=== PATIENT | male | born 1980 | race Caucasian/White ===

== ENCOUNTER 2022-03-08 08:18 | Outpatient (CLI) | payer BC, SELFPAY ==
[2022-03-08 20:55] LABS: Basophils Absolute Auto 0.1 K/mm3 (0.0-0.1); Basophils Percent Auto 0.8 % (0.2-1.2); Eosinophils Absolute Auto 0.4 K/mm3 (0-0.3); Eosinophils Percent Auto 7.1 % (0-4.4); Hematocrit 46.4 % (42.0-52.0); Hemoglobin 15.6 g/dL (14.0-18.0); Immature Granulocyte Absolute 0.01 K/mm3 (0.00-0.031); Immature Granulocyte Percent A 0.2 % (0-0.5); Lymphocytes Absolute Auto 1.23 K/mm3 (0.9-3.2); Lymphocytes Percent Auto 20.9 % (18.3-44.2); Mean Corpuscular HGB Conc 33.6 g/dl (32-36); Mean Corpuscular Hemoglobin 30.4 pg (26-34); Mean Corpuscular Volume 90.4 fl (80-100); Mean Platelet Volume 10.3 fl (7.4-10.4); Monocytes Absolute Auto 0.6 K/mm3 (0.1-0.6); Neutrophils Absolute Auto 3.6 K/mm3 (1.3-6.7); Platelet Count Result 211 k/mm3 (150-375); Red Blood Count 5.13 M/mm3 (4.6-6.20); Red Cell Distribution Width 12.5 % (11.5-14.5); White Blood Count 5.9 K/mm3 (4.5-10.0)
[2022-03-08 20:57] LABS: Alanine Aminotransferase 15 U/L (6-50); Albumin Level 4.3 g/dL (3.5-5.1); Alkaline Phosphatase 61 U/L (38-126); Anion Gap 9 mmol/L (8-16); Aspartate Amino Transferase 31 U/L (17-59); Bilirubin,Total 0.7 mg/dL (0.2-1.3); Blood Urea Nitrogen 19 mg/dL (9-20); Calcium 9.3 mg/dL (8.4-10.2); Carbon Dioxide 29 mmol/L (22-30); Chloride 100 mmol/L (98-107); Cholesterol 152 mg/dL (0-200); Estimated Glomerular Filt Rate > 60; Glucose 96 mg/dL (65-110); HDL Direct 42 mg/dL; Potassium 4.2 mmol/L (3.4-5.0); Sodium 138 mmol/L (137-145); Triglycerides 124 mg/dL (<150)
[2022-03-08 21:18] LABS: Vitamin D 25 Hydroxy 52.2 ng/mL
[2022-03-08 21:47] LABS: Hemoglobin A1C 5.3 % (<5.7)
[2022-03-08 22:29] LABS: LDL Cholesterol Direct 78 mg/dL
== END 2022-03-08 08:19 | disposition home or self-care (01) ==
LOC: ANHGOSHLAB 08:20
PROVIDERS: PCP Nurse Practitioner; Visit Provider Nurse Practitioner
DX: E78.5 Hyperlipidemia, unspecified (principal); E53.8 Deficiency of other specified B group vitamins; I10 Essential (primary) hypertension; E55.9 Vitamin D deficiency, unspecified; R73.9 Hyperglycemia, unspecified
CPT/HCPCS: 36415; 80053; 80061; 82306; 82607; 83036; 85025

== ENCOUNTER 2022-07-06 18:57 | Emergency (ER) | payer BC, SELFPAY ==
--- NOTE | 2022-07-06 18:58 | ED.URI ---
HPI - URI/Sore Throat General Chief Complaint: Upper Respiratory Infection Stated Complaint: sore throat, ear pain, cough Time Seen by Provider: 07/06/22 18:58 Source: patient Mode of arrival: ambulatory Limitations: no limitations History of Present Illness HPI Narrative: Mr. Lombardi is a 42-year-old male patient presenting to the clinic today with complaints of sore throat, ear pain, and cough x2 days. He reports no known fever or chills but has felt feversish. Is concerned that he may have strep throat or the flu. MD elicited complaint: sore throat and nasal congestion Related Data Allergies Allergy/AdvReac Type Severity Reaction Status Date / Time cefdinir Allergy Unknown Unknown Verified 03/07/22 09:33 prednisone Allergy Unknown hives Verified 03/07/22 09:33 Review of Systems Review of Systems: Pertinent positives per HPI. Patient denies any rash, headache, visual changes, dizziness, shortness of breath, chest pain, palpitations, nausea, vomiting, diarrhea, constipation, abdominal pain, or any urinary issues. [facility] Past Medical History Medical History Benign essential tremor Bundle branch block, right Shown on EKG 2005, stress showed ok Depression Dyslipidemia Essential (primary) hypertension Ganglion cyst of volar aspect of right wrist Surgical History Surgical History History of tonsillectomy 1984 History of vasectomy (~2010) Hx of adenoidectomy (~1984) [place] teeth extracted (~1994) Family History Family History Other Family history of coronary artery disease Hypertension Social History Social History Smoking status: Former smoker Tobacco type: cigarettes Second hand tobacco smoke exposure: No Alcohol intake: current Drinks per week: 6 Alcohol use details: 6 beers weekly Substance use: never Substance use type: does not use 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 There is no relevant family history pertinent to the patient complaint. Exam Narrative: General: Well-developed, well nourished, in no apparent distress Head: Normocephalic, atraumatic Eyes: Pupils equally round and reactive to light bilaterally, EOM intact, sclera and conjunctive clear, no discharge, lids normal Ears: TMs intact, mild bulging, dull, ear canals clear, no drainage, grossly hearing normal. Nose: Nares patent, clear nasal discharge, no inflammation, no sinus tenderness. Mouth: Oral pharynx without lesions or masses, good dentition, MMM. Postnasal drip Neck: Supple, trachea midline, no enlargement of anterior or posterior cervical nodes, no thyroid masses or goiter palpable. Cardio: Regular rate and rhythm, s1 and s2 normal, no murmur appreciated. Resp: Clear to auscultation bilaterally, no rhonchi, rales, wheezing or rubs Course Course Emergency Course: Portions of this record may have been created with voice recognition software. Level of Care: Express Care Visit Vital Signs Vital signs: Vital signs reviewed MDM - URI/Sore Throat MDM Narrative Medical decision making narrative: At the time of visit patient is resting comfortably on the exam table. COVID and influenza testing were completed were negative. Strep culture was obtained and sent to the lab. I suspect the patient has URI/pharyngitis. Supportive measures were discussed with the patient he voiced understanding discharge instructions and agrees to treatment plan. Differential Diagnosis Differential diagnosis: Likely upper respiratory infection, otitis medi
[2022-07-06 19:04] VITALS: BP 141/94; PULSE 80; RESP 16; TEMP 37.2; O2SAT 100
== END 2022-07-06 19:32 | disposition home or self-care (01) ==
PROVIDERS: Emergency Provider Nurse Practitioner Family; PCP Family Medicine
DX: B34.9 Viral infection, unspecified (principal); J06.9 Acute upper respiratory infection, unspecified; J02.9 Acute pharyngitis, unspecified; Z20.822 Contact with and (suspected) exposure to COVID-19; Z87.891 Personal history of nicotine dependence; E78.5 Hyperlipidemia, unspecified; I10 Essential (primary) hypertension; Z98.52 Vasectomy status
CPT/HCPCS: 87081; 87426; 87804; 99213; C9803; G0463

== ENCOUNTER 2022-11-19 12:44 | Emergency (ER) | payer BC, SELFPAY ==
--- NOTE | ~2022-11-19 | CT_ITS ---
IMPRESSION: 1. No fracture or acute intracranial hemorrhage. 2. Cavum septum pellucidum and prominent enlargement of the left and right late ral ventricles and to lesser degree third ventricle which could be due to eithe r hydrocephalus or developmental ventriculomegaly. EXAMINATION: CT brain wo con DATE: 11/19/2022 14:35 INDICATION: Head trauma TECHNIQUE: Computed tomography (CT) of the head was performed without intravenous contrast. Sagittal and coronal reconstructions were performed. The mA was adjusted according to patient size. Iterative reconstruction technique was employed. The dose-length product was 681.00 mGy-cm. COMPARISON: None FINDINGS: No fracture. No acute intracranial hemorrhage, acute infarction or abnormal extra axial fluid collect ion. Cavum septum pellucidum. There is prominent symmetric enlargement of the left and right lateral ventricles and to lesser extent the third ventricle disproportionate to the normal sulci. Is also neg ative cisterna magna. No evident endosteal stenosis or other obstructing lesions. No mass/mass effect . The orbits, paranasal sinuses and mastoid air cells are normal. IMPRESSION: 1. No fracture or acute intracranial hemorrhage. 2. Cavum septum pellucidum and prominent enlargement of the left and right lateral ventricles and to lesser degree third ventricle which could be due to either hydrocephalus or developmental ventriculom egaly. Reviewed, dictated and finalized at location A.
[2022-11-19 12:47] VITALS: BP 133/85; PULSE 73; RESP 18; TEMP 36.6; O2SAT 99
--- NOTE | 2022-11-19 13:05 | ED.GENADULT ---
HPI - General Adult General Chief complaint: Wound/Laceration Stated complaint: head laceration Time Seen by Provider: 11/19/22 12:54 History of Present Illness HPI narrative: 42-year-old male reports for evaluation for a puncture wound to the vertex of his scalp that occurred just prior to arrival. Patient reports he was climbing up a ladder into his attic when he accidentally hit his head on a nail. He denies headache, vision changes, focal numbness or weakness, dizziness, altered mental status, LOC. States the area immediately started bleeding so he came to the emergency department. Last tetanus unknown. Related Data Allergies Allergy/AdvReac Type Severity Reaction Status Date / Time cefdinir Allergy Unknown Unknown Verified 03/07/22 09:33 prednisone Allergy Unknown hives Verified 03/07/22 09:33 Review of Systems Review of Systems: CONSTITUTIONAL: Denies fever, chills EYES: Denies visual changes, redness, or discharge. ENT: Denies rhinorrhea, congestion, sore throat, or otalgia. CARDIOVASCULAR: Denies chest pain, palpitations, or edema. RESPIRATORY: Denies cough or dyspnea. GASTROINTESTINAL: Denies abdominal pain, nausea, vomiting, or diarrhea. GENITOURINARY: Denies dysuria or hematuria. SKIN: See HPI MUSCULOSKELETAL: Denies back pain, joint pain, or myalgia. NEUROLOGIC: Denies headache, numbness, dizziness, or weakness. PSYCHIATRIC: Denies anxiety or depression. [facility] Past Medical History Medical History Benign essential tremor Bundle branch block, right Shown on EKG 2005, stress showed ok Depression Dyslipidemia Essential (primary) hypertension Ganglion cyst of volar aspect of right wrist Surgical History Surgical History History of tonsillectomy 1984 History of vasectomy (~2010) Hx of adenoidectomy (~1984) [place] teeth extracted (~1994) Family History Family History Other Family history of coronary artery disease Hypertension Social History Social History Smoking status: Former smoker Tobacco type: cigarettes Second hand tobacco smoke exposure: No Alcohol intake: current Drinks per week: 6 Alcohol use details: 6 beers weekly Substance use: never Substance use type: does not use Living arrangements: with family Occupation/Education: occupation Additional occupation/education comments: [employer] Gender identity (if verbalized by the patient): Male Agree to blood products: Yes Exam Narrative: GENERAL: Well-appearing, well-nourished, and in no acute distress. Patient resting comfortably in exam bed. He is pleasant and conversational. HEAD: Normocephalic. No sidhu sign or raccoon eyes EYES: PERRLA and EOMI. ENT: Nares clear, no rhinorrhea or epistaxis. Mucous membranes moist. Oropharynx without tonsillar hypertrophy exudate or other lesions. Bilateral TMs pearly currie nonbulging. No hemotympanums NECK: Supple. CHEST: Clear to auscultation. No respiratory distress. No wheezes rales or rhonchi HEART: Regular rate and rhythm. No murmur heard. Normal peripheral pulses. EXTREMITIES: Normal range of motion. No edema. SKIN: Small puncture wound to the vertex of the scalp, bleeding controlled. No surrounding lacerations or abrasions, no erythema or fluctuation. No ecchymosis or crepitus, step-offs or deformities to scalp. NEURO: No focal deficits. Alert and oriented x3. Cranial nerves II through XII intact. Strength 5 out of 5 in bilateral upper and lower extremities. Sensation intact throughout. Radial and DP pulses 2+. Normal [id number]. Negative pronator drift. No aphasia. Ambulating normally. PSYCH: Normal mood and affect. Course Course Emergency Course: Offered pain medications, pt declined. Vital Signs Vital s
[2022-11-19] MEDS: TETANUS,DIPHTHERIA,AC PERTUSSIS ADULT (0.5 ML) BOOSTRIX IM (13:29)
[2022-11-19 15:43] VITALS: BP 125/79; PULSE 74; RESP 16; O2SAT 99
== END 2022-11-19 15:44 | disposition home or self-care (01) ==
PROVIDERS: Emergency Provider Physician Assistant; PCP Family Medicine
DX: S01.03XA Puncture wound without foreign body of scalp, initial encounter (principal); G93.89 Other specified disorders of brain; Z23 Encounter for immunization; E78.5 Hyperlipidemia, unspecified; I10 Essential (primary) hypertension; Z87.891 Personal history of nicotine dependence; W45.0XXA Nail entering through skin, initial encounter
CPT/HCPCS: 70450; 90471; 90715; 99284

== ENCOUNTER 2022-12-20 16:43 | Outpatient (CLI) | payer BC, SELFPAY ==
--- NOTE | ~2022-12-20 | MR_ITS ---
EXAMINATION: MR brain/brain stem wo/w con DATE: 12/20/2022 17:33 INDICATION: Ventriculomegaly of brain. TECHNIQUE: Magnetic resonance imaging (MRI) of the brain and brainstem was performed without and with 20 mL MultiHance intravenous contrast. COMPARISON: Head CT 11/19/2022 FINDINGS: There is no intracranial hemorrhage, acute infarction, or abnormal intracranial mass lesion . There is a small focus of increased T2-weighted signal intensity in the left frontal lobe white mat ter, which is normal as an isolated finding. There is marked ventriculomegaly involving the lateral a nd third ventricles. Cavum septum pellucidum is noted. There is mucosal thickening in the paranasal s inuses. The orbits are normal. IMPRESSION: 1. Stable marked ventriculomegaly involving the lateral and third ventricles. Reviewed, dictated and finalized at location A.
== END 2022-12-20 16:44 | disposition home or self-care (01) ==
PROVIDERS: PCP Family Medicine; Visit Provider Neurological Surgery
DX: Q04.8 Other specified congenital malformations of brain (principal)
CPT/HCPCS: 70553; A9577

== ENCOUNTER 2023-04-21 08:03 | Outpatient (CLI) | payer BC, SELFPAY ==
[2023-04-21 16:35] LABS: Basophils Percent Auto 0.6 % (0.2-1.2); Eosinophils Absolute Auto 0.3 K/mm3 (0-0.3); Eosinophils Percent Auto 5.5 % (0-4.4); Hematocrit 45.5 % (42.0-52.0); Hemoglobin 15.2 g/dL (14.0-18.0); Immature Granulocyte Absolute 0.01 K/mm3 (0.00-0.031); Immature Granulocyte Percent A 0.2 % (0-0.5); Lymphocytes Absolute Auto 1.43 K/mm3 (0.9-3.2); Lymphocytes Percent Auto 30.2 % (18.3-44.2); Mean Corpuscular HGB Conc 33.4 g/dl (32-36); Mean Corpuscular Hemoglobin 30.4 pg (26-34); Mean Platelet Volume 9.9 fl (7.4-10.4); Monocytes Absolute Auto 0.5 K/mm3 (0.1-0.6); Monocytes Percent Auto 11.4 % (2.6-8.5); Neutrophils Absolute Auto 2.5 K/mm3 (1.3-6.7); Neutrophils Percent Auto 52.1 % (45.5-73.1); Platelet Count Result 252 k/mm3 (150-375); Red Cell Distribution Width 12.1 % (11.5-14.5); White Blood Count 4.7 K/mm3 (4.5-10.0)
[2023-04-21 20:05] LABS: Alanine Aminotransferase 19 U/L (6-50); Albumin Level 4.3 g/dL (3.5-5.1); Alkaline Phosphatase 52 U/L (38-126); Anion Gap 5 mmol/L (8-16); Aspartate Amino Transferase 29 U/L (17-59); Bilirubin,Total 0.5 mg/dL (0.2-1.3); Blood Urea Nitrogen 15 mg/dL (9-20); Calcium 9.3 mg/dL (8.4-10.2); Carbon Dioxide 30 mmol/L (22-30); Chloride 102 mmol/L (98-107); Cholesterol 214 mg/dL (0-200); Estimated Glomerular Filt Rate > 60; Glucose 84 mg/dL (65-110); HDL Direct 36 mg/dL; Potassium 4.3 mmol/L (3.4-5.0); Sodium 137 mmol/L (137-145); Triglycerides 102 mg/dL (<150)
[2023-04-21 20:35] LABS: LDL Cholesterol Direct 137 mg/dL
[2023-04-21 20:59] LABS: Hemoglobin A1C 5.4 % (<5.7)
== END 2023-04-21 08:04 | disposition home or self-care (01) ==
LOC: ANHGOSHLAB 08:06
PROVIDERS: PCP Family Medicine; Visit Provider Emergency Medicine
DX: R22.0 Localized swelling, mass and lump, head (principal); E78.5 Hyperlipidemia, unspecified
CPT/HCPCS: 36415; 80053; 80061; 83036; 85025

== ENCOUNTER 2024-03-29 09:02 | Outpatient (CLI) | payer BC, SELFPAY ==
[2024-03-29 14:38] LABS: Basophils Absolute Auto 0.1 K/mm3 (0.0-0.1); Basophils Percent Auto 1.6 % (0.2-1.2); Eosinophils Absolute Auto 0.4 K/mm3 (0-0.3); Eosinophils Percent Auto 11.3 % (0-4.4); Hematocrit 43.9 % (42.0-52.0); Hemoglobin 14.6 g/dL (14.0-18.0); Lymphocytes Absolute Auto 1.19 K/mm3 (0.9-3.2); Lymphocytes Percent Auto 31.9 % (18.3-44.2); Mean Corpuscular HGB Conc 33.3 g/dl (32-36); Mean Corpuscular Hemoglobin 30.5 pg (26-34); Mean Corpuscular Volume 91.6 fl (80-100); Mean Platelet Volume 10.3 fl (7.4-10.4); Monocytes Absolute Auto 0.4 K/mm3 (0.1-0.6); Monocytes Percent Auto 11.5 % (2.6-8.5); Neutrophils Absolute Auto 1.6 K/mm3 (1.3-6.7); Neutrophils Percent Auto 43.7 % (45.5-73.1); Platelet Count Result 232 k/mm3 (150-375); Red Blood Count 4.79 M/mm3 (4.6-6.20); Red Cell Distribution Width 12.5 % (11.5-14.5); White Blood Count 3.7 K/mm3 (4.5-10.0)
[2024-03-29 14:39] LABS: Alanine Aminotransferase 16 U/L (6-50); Albumin Level 4.3 g/dL (3.5-5.1); Alkaline Phosphatase 55 U/L (38-126); Anion Gap 10 mmol/L (4-12); Aspartate Amino Transferase 32 U/L (17-59); Bilirubin,Total 0.9 mg/dL (0.2-1.3); Blood Urea Nitrogen 16 mg/dL (9-20); Calcium 9.4 mg/dL (8.4-10.2); Carbon Dioxide 30 mmol/L (22-30); Chloride 99 mmol/L (98-107); Cholesterol 144 mg/dL (0-200); Estimated Glomerular Filt Rate > 60; Glucose 93 mg/dL (65-110); HDL Direct 43 mg/dL; Potassium 4.6 mmol/L (3.4-5.0); Sodium 139 mmol/L (137-145); Triglycerides 95 mg/dL (<150)
[2024-03-29 14:51] LABS: LDL Cholesterol Direct 80 mg/dL
[2024-03-29 15:15] LABS: Hemoglobin A1C 5.5 % (<5.7)
[2024-03-29 15:56] LABS: Vitamin D 25 Hydroxy 26.9 ng/mL
== END 2024-03-29 09:03 | disposition home or self-care (01) ==
LOC: ANHGOSHLAB 09:03
PROVIDERS: PCP Family Medicine; Visit Provider Family Medicine
DX: K52.9 Noninfective gastroenteritis and colitis, unspecified (principal); E78.5 Hyperlipidemia, unspecified; R73.9 Hyperglycemia, unspecified; G25.0 Essential tremor; I10 Essential (primary) hypertension; E53.8 Deficiency of other specified B group vitamins; E55.9 Vitamin D deficiency, unspecified
CPT/HCPCS: 36415; 80053; 80061; 82306; 82607; 83036; 84443; 85025

== ENCOUNTER 2024-07-04 08:00 | Outpatient (CLI) | payer BC, SELFPAY ==
[2024-07-04 13:39] LABS: Basophils Absolute Auto 0.1 K/mm3 (0.0-0.1); Eosinophils Absolute Auto 0.3 K/mm3 (0-0.3); Eosinophils Percent Auto 6.3 % (0-4.4); Hematocrit 47.4 % (42.0-52.0); Hemoglobin 15.8 g/dL (14.0-18.0); Immature Granulocyte Absolute 0.01 K/mm3 (0.00-0.031); Immature Granulocyte Percent A 0.2 % (0-0.5); Lymphocytes Absolute Auto 1.36 K/mm3 (0.9-3.2); Lymphocytes Percent Auto 27.5 % (18.3-44.2); Mean Corpuscular HGB Conc 33.3 g/dl (32-36); Mean Corpuscular Volume 92.9 fl (80-100); Monocytes Absolute Auto 0.6 K/mm3 (0.1-0.6); Monocytes Percent Auto 11.7 % (2.6-8.5); Neutrophils Absolute Auto 2.6 K/mm3 (1.3-6.7); Neutrophils Percent Auto 53.3 % (45.5-73.1); Platelet Count Result 211 k/mm3 (150-375); Red Cell Distribution Width 12.4 % (11.5-14.5); White Blood Count 4.9 K/mm3 (4.5-10.0)
== END 2024-07-04 08:01 | disposition home or self-care (01) ==
LOC: ANHGOSHLAB 08:02
PROVIDERS: PCP Family Medicine; Visit Provider Family Medicine
DX: D72.819 Decreased white blood cell count, unspecified (principal)
CPT/HCPCS: 36415; 85025

== ENCOUNTER 2025-01-15 14:30 | Emergency (ER) | payer BC, SELFPAY ==
[2025-01-15 14:45] VITALS: BP 134/77; PULSE 72; RESP 16; TEMP 36.3; O2SAT 98
--- NOTE | 2025-01-15 15:25 | ED_ITS ---
HPI - Wound/Laceration General Chief Complaint: Wound/Laceration Stated Complaint: Laceration left index finger Time Seen by Provider: 01/15/25 15:00 Source: patient and RN notes reviewed Mode of arrival: ambulatory Limitations: no limitations History of Present Illness HPI narrative: 44-year-old male presents Express Care complaining of left index finger laceration. 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 Patient denies dropping her breaking the toilet or any apparent sharp spots on the toilet. Patient stated he is having a hard time getting the bleeding under control. Bleeding has stopped with direct pressure. Patient's tetanus is up-to-date. Patient denies any numbness or tingling, swelling, redness, or any other injuries. Related Data Home Medications ?Medication ?Instructions ?Recorded ?Confirmed ?Last Taken ?Type loperamide 2 mg tablet (Imodium 1 mg PO DAILY 03/29/24 03/29/24 Unknown History A-D) loratadine 10 mg tablet (Claritin) 10 mg PO DAILY 03/29/24 03/29/24 Unknown History Allergies Allergy/AdvReac Type Severity Reaction Status Date / Time cefdinir Allergy Unknown Unknown Verified 01/15/25 14:55 prednisone Allergy Unknown hives Verified 01/15/25 14:55 Review of Systems Review of Systems: CONSTITUTIONAL: Denies fever, chills, or sweats. EYES: Denies visual changes, redness, or discharge. ENT: Denies rhinorrhea, congestion, sore throat, or otalgia. CARDIOVASCULAR: Denies chest pain, palpitations, or edema. RESPIRATORY: Denies cough or dyspnea. GASTROINTESTINAL: Denies abdominal pain, nausea, vomiting, or diarrhea. GENITOURINARY: Denies dysuria or hematuria. SKIN: Denies rash or itching. Positive for laceration. MUSCULOSKELETAL: Denies back pain, joint pain, or myalgia. NEUROLOGIC: Denies headache, numbness, or weakness. PSYCHIATRIC: Denies anxiety or depression. All other systems reviewed are negative, except as documented in HPI. [facility] Past Medical History Medical History Congenital hydrocephalus (~2022) History of Clostridioides difficile colitis (~2014) Chronic seasonal allergic rhinitis History of colon polyps Benign essential tremor Depression Dyslipidemia Essential (primary) hypertension Bundle branch block, right Shown on EKG 2005, stress showed ok Surgical History Surgical History [place] teeth extracted (~1994) Hx of adenoidectomy (~1984) History of vasectomy (~2010) History of tonsillectomy 1983 Family History Family History Other Family history of coronary artery disease Hypertension Social History Social History Social History: Caffeine-soda Smoking status: Former smoker (1 pack/month for 3-4 years) Tobacco type: cigarettes Second hand tobacco smoke exposure: No Smoking end date: 07/24/20 Alcohol intake: current Drinks per week: 6 Alcohol use details: 6 beers weekly Substance use: never Substance use type: does not use Lack of Transportation: No Lack of Food: Never True Current Housing: I Have Housing Concerned About Future Housing: No Difficulty Paying Gas/Electric Bills: No Difficulty Paying for Meds: No Currently Unemployed: No Education: Bachelor's Degree Difficulty w/ Childcare or Family Care: No Living arrangements: with family Occupation/Education: occupation 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 There is no relevant family history pertinent to the patient complaint. Exam Narrative: GENERAL: This is a well-nourished, well-developed adult, in no apparent distress. They are non ill-appearing, nontoxic appearing. HEAD: normocephalic, atraumatic. EYES: Sclera clear/white. Conjunctiva normal. Vision is grossly intact. Extraocular movements intact EARS: External ears normal, NOSE: External nose normal THROAT: Mucous membranes moist NECK: Neck supple, CARDIOVASCULAR: Regular rate and rhythm RESPIRATORY: Respiratory rate normal, respiratory effort nonlabored, no respiratory distress SKIN: Left index finger: There is a 1 cm laceration to the palmar surface of the distal index finger, distal to the DIP joint. Laceration is well approximated. Laceration is superficial. No surrounding cellulitis, redness, swelling, pain, exudate. Nail bed intact. Normal range of motion of up index finger. Neurovascular status intact distal injury. Patient can flex and extend against resistance at the DIP joint. Capillary refill less than 2 seconds. Will sensation. NEURO: awake, alert, and oriented to person, place and time. There were no obvio us focal neurologic abnormalities. EXTREMITIES: No joint tenderness, effusion, or edema noted. Course Course Emergency Course: Portions of this record may have been created with voice recognition software Level of Care: Express Care Visit Vital Signs Vital signs: Vital Signs Temperature 97.4 F L 01/15/25 14:45 Pulse Rate 72 01/15/25 14:45 Respiratory Rate 16 01/15/25 14:45 Blood Pressure 134/77 01/15/25 14:45 Pulse Oximetry 98 01/15/25 14:45 Temperature 97.4 F L 01/15/25 14:45 Pulse Rate 72 01/15/25 14:45 Respiratory Rate 16 01/15/25 14:45 Blood Pressure 134/77 01/15/25 14:45 Pulse Oximetry 98 01/15/25 14:45 Reviewed MDM - Wound/Laceration MDM Narrative Medical decision making narrative: Small laceration to left index finger. Laceration well approximated and very superficial. No sutures indicated. Neurovascular status intact to finger. Steri-Strips applied over laceration do not hear Band-Aid. Wound care was performed by nursing staff. Wound was irrigated. Hemostasis achieved. Since patient was handling a dirty toilet will prophylactically treat with doxycycline. Patient has allergy to cephalosporins. Patient's tetanus up-to-date. Discussed physical exam findings. Advised supportive measures and signs/symptoms to go to the ER. Pt is appropriate for outpt treatment and f/u. Differential Diagnosis Differential diagnosis: Likely laceration, abrasion and avulsion of skin Critical Care Time Critical Care Time Critical Care Time: No Discharge Plan Discharge Clinical Impression: Laceration of finger Qualifiers: Encounter type: initial encounter Finger: index finger Damage to nail status: without damage Foreign body presence: without foreign body Laterality: left Qualified Code(s): S61.211A - Laceration without foreign body of left index finger without damage to nail, initial encounter Patient Disposition: Home Condition: Stable Instructions: Antibiotic Form, Laceration (ED) Additional Instructions: Wear the dressing that has been applied for the first 24 hours to allow a scab to start forming. ?After this, you may remove and wash as normal with soap and water. ?Do NOT wash with peroxide or alcohol. ?Do NOT apply antibiotic ointment. Take the antibiotic as directed. Please wear sunscreen while taking doxycycline if her going to be outside. You remove the Steri-Strips the next 48-72 hours. Avoid dirty water to the wound has healed completely. Take tylenol or ibuprofen at home for pain?Follow up with your PCP 3-5 days. Please go to the ER for any signs of infection such as redness, swelling, increased pain, or green or yellow drainage. ?Please go see a hand specialist if you develops any numbness or tingling or any problems with your index finger. Patient Language: Austrian Prescriptions: New doxycycline monohydrate 100 mg capsule 100 mg PO BID 5 Days Qty: 10 0RF No Action loperamide [Imodium A-D] 2 mg tablet 1 mg PO DAILY loratadine [Claritin] 10 mg tablet 10 mg PO DAILY cholecalciferol (vitamin D3) 1,250 mcg (50,000 unit) tablet 1,250 mcg PO WEEKLY Qty: 12 1RF propranolol 60 mg capsule,extended release 24 hr 60 mg PO DAILY Qty: 90 1RF atorvastatin 10 mg tablet See Rx Instructions .ROUTE .COMPLEX Qty: 90 0RF Dose Instruction: TAKE 1 TABLET BY MOUTH EVERY DAY AT BEDTIME Rx Instructions: TAKE 1 TABLET BY MOUTH EVERY DAY AT BEDTIME Follow-up/Referrals: Tory Rodriguez MD [Primary Care Provider] - Time of Disposition: 15:16
== END 2025-01-15 15:35 | disposition home or self-care (01) ==
PROVIDERS: PCP Family Medicine
DX: S61.211A Laceration without foreign body of left index finger without damage to nail, initial encounter (principal); W45.8XXA Other foreign body or object entering through skin, initial encounter; Q03.9 Congenital hydrocephalus, unspecified; I10 Essential (primary) hypertension; E78.5 Hyperlipidemia, unspecified; Z86.19 Personal history of other infectious and parasitic diseases; Z87.891 Personal history of nicotine dependence; Z98.52 Vasectomy status
CPT/HCPCS: 99213; G0463

== ENCOUNTER 2025-03-31 09:17 | Outpatient (CLI) | payer BC, SELFPAY ==
--- OUTSIDE RECORDS SUMMARY | 2025-03-31 09:33 | XMS_ITS | Clinical Summary ---
Author Organization [facility] Address [address] [place] [address] Care Team Providers Care Data Center Manager Name Role Phone Alice Rodriguez MD Primary Care Provider Allergies Active Allergy Reactions Criticality Noted Date Comments Prednisone Rash Medium 01/30/2018 Medications atorvastatin (LIPITOR) 10 mg tablet Take 1 tablet (10 mg total) by mouth nightly at bedtime 11/19/2022 Active propranolol LA (INDERAL LA) 60 mg 24 hr capsule Take 1 capsule (60 mg total) by mouth daily 11/21/2022 Active loperamide HCl/simethicone (IMODIUM MULTI-SYMPTOM RELIEF ORAL) Take by mouth Active Active Problems Problem Noted Date Diagnosed Date 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 Immunizations Immunization Administration Dates Next Due Influenza, Quadrivalent, Katelynn l Culture-based MDCK, Antibiotic Free, Intramuscular 05/02/2018 Influenza, Quadrivalent, Katelynn l Culture-based MDCK, Preservative Free, Antibiotic Free, Intramuscular 05/26/2022,06/08/2021,06/27/2017 Influenza, Quadrivalent, Spl it, Intramuscular 05/20/2019 Influenza, Quadrivalent, Spl it, Preservative Free, Intramuscular 05/20/2020 Influenza, Trivalent, IM (MDV) 06/08/2014,2012 Influenza, Trivalent, Preser vative Free, Intramuscular 05/03/2015 TD Preservative Free 07/07/2021,12/22/2005 Tdap 11/19/2022 Social History Tobacco Use Types Packs/Day Years Used Date Smoking Tobacco: Never Smokeless Tobacco: Never Tobacco Cessation:Counseling Given: Not Answered Personal Safety Answer Date Recorded Getting School Help Needed Not on file 10/06 Sex and Gender Information Value Date Recorded Sex Assigned at Not on file 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 Gender Identity Not on file Sexual Orientation Not on file Obstetrics History Last Filed Vital Signs Vital Sign Reading Time Taken Comments Blood Pressure 127/82 12/29/2022 2:02 PM CDT Pulse 75 12/29/2022 2:02 PM CDT Temperature 36.7 C (98 F) 12/29/2022 2:02 PM CDT Respiratory Rate - - Oxygen Saturation 94% 12/29/2022 2:02 PM CDT Inhaled Oxygen Concentration - - Weight 101.8 kg (224 lb 6.4 oz) 12/29/2022 2:02 PM CDT Height 190.5 cm (6' 3) 12/29/2022 2:02 PM CDT Body Mass Index 28.05 12/29/2022 2:02 PM CDT Plan of Treatment Health Maintenance Due Date Last Done Comments Colon Cancer Screening-Colonoscopy 1979 Depression Screening 1979 Hepatitis C Screening 1979 Hepatitis B Screening 1997 Regular Well Visit/Exam 18-64 1997 HPV Vaccines (1 - 3-dose SCDM series) 2006 Covid-19 Vaccine ( season) 2024 07/07/2021, 09/11/2020, 08/21/2020 Influenza Vaccine (#1) 2025 2, 06/08/2021, 05/20/2020, Additional history exists DTaP/Tdap/Td Vaccine (2 - Td or Tdap) 11/19/2032 11/19/2022, 07/07/2021, 12/22/2005 Pneumococcal vaccine <65 Aged Out No longer eligible based on patient's age to complete this topic Insurance [place] [address] [employer]AL Care Teams Data Center Manager Relationship Specialty Start Date End Date Alice Rodriguez MD PCP - General Family Practice 11/22/22
--- OUTSIDE RECORDS SUMMARY | 2025-03-31 09:33 | XMS_ITS | Clinical Summary ---
Author Organization [facility] Address [address] [place] [address] Care Team Providers Care Corporate Risk Analyst Name Role Phone Unavailable Primary Care Provider Unavailabl e Social History Tobacco Use Types Packs/Day Years Used Date Smoking Tobacco: Never Assessed Sex and Gender Information Value Date Recorded Sex Assigned at Not on file Legal Sex Male 2:01 PM CDT Gender Identity Not on file Sexual Orientation Not on file Plan of Treatment Health Maintenance Due Date Last Done Comments DTAP/TDAP/TD VACCINES (1 - Tdap) 1998 HEPATITIS B VACCINES (1 of 3 - 19+ 3-dose series) 05/26 HPV VACCINES (1 - 3-dose SCDM series) 2006 COLORECTAL SCREENING 2024 Colorectal Cancer Screening 2024 FIT-DNA Q 3 years 2024 FIT/FOBT Q 1 year 2024 Flex Sig/CT Colonography Q 5 years 2024 INFLUENZA VACCINE (#1) 2025
--- OUTSIDE RECORDS SUMMARY | 2025-03-31 09:33 | XMS_ITS | Encounter Summary ---
Author Organization [facility] Address [address] [facility] [place] [address] Care Team Providers Care Director Of Physical Security Name Role Phone Aj Hinton MD Unavailable [phone] Aj Hinton MD Primary Care Provider [phone] Encounter Details Date Type Department Care Team (Late st Contact Info) Description 11/14/2023 Lab Requisition [facility] - DermPath Lab [address] 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 Gender Identity Not on file Sexual Orientation Not on file documented as of this encounter Plan of Treatment Not on file documented as of this encounter Procedures Procedure Name Priority Date/Time Associated Diagnosis Comments DERMATOPATHOLOGY Routine 11/14/2023 1:15 PM CDT documented in this encounter Results * DERMATOPATHOLOGY (11/14/2023 1:15 PM CDT) Case Report Dermatopathology Report Case: [id number] Authorizing Provider: Liset Liu DO Collected: 11/14/2023 01:15 PM Ordering Location: [facility] - Received: 11/15/2023 01:51 PM DermPath Lab Pathologist: Zuleyma William MD Specimen: Skin, left posterior neck 1:40 PM CDT DERMATOPATHOLOGY LABORATORY Final Diagnosis Specimen A. SKIN, left posterior neck: INTRADERMAL MELANOCYTIC NEVUS (D22.4) 1:40 PM CDT DERMATOPATHOLOGY LABORATORY at 1340 CDT Clinical History IDN; r/o Atypia, irritated 1:40 PM CDT DERMATOPATHOLOGY LABORATORY Gross Description Specimen A: Received is one formalin filled container labeled with the patient's name and designated left posterior neck. The specimen consists of a shave biopsy measuring 7x5x1 mm. Jar 0. 1:40 PM CDT DERMATOPATHOLOGY LABORATORY Microscopic Description Specimen A. SKIN, left posterior neck: There are nests of cytologically bland melanocytes within the dermis that mature with depth. 1:40 PM CDT DERMATOPATHOLOGY LABORATORY Disclaimer An external and internal positive and negative controls are appropriate for the histochemical, immunohistochemical and immunofluorescence stain(s) in this case (if any), except where stated explicitly. The performance characteristics of the stain(s) cited in this report were developed and its performance characteristic determined by the Dermatopathology Laboratory at [facility], directed by Dr. Delphine Sequeira. These tests need not be, and therefore are not, approved by the [place] Food and Drug Administration. The tests are used for clinical purposes. Billing Codes Specimen Charges Stain Charges 28913 1 1:40 PM CDT DERMATOPATHOLOGY LABORATORY Embedded Images 1:40 PM CDT DERMATOPATHOLOGY LABORATORY Pathology/Cytolo gy TISSUE SPECIMEN FROM SKIN / Unknown 11/14/2023 1:15 PM CDT 11/15/2023 1:51 PM CDT us Liset Liu DO LAB - PATHOLOGY/CYTOLOGY ORDERABLES Final Result DERMATOPATHOLOGY LABORATORY [facility] - Department of Dermatology [address] [phone] documented in this encounter Visit Diagnoses Not on filedocumented in this encounter Care Teams Director Of Physical Security Relationship Specialty Start Date End Date Aj Hinton MD [address] [place] [id number] PCP - General 05/07/19 Aj Hinton MD [address] [place] [phone] 01/30/18 documented as of this encounter
--- OUTSIDE RECORDS SUMMARY | 2025-03-31 09:33 | XMS_ITS | Clinical Summary ---
Author Organization [facility] Address [address] [facility] [place] [address] Care Team Providers Care Inspector Receiving Name Role Phone Aj Hinton MD Unavailable [phone] Aj Hinton MD Primary Care Provider [phone] [facility],non-owned Affiliates and Associated Physician Practices is amultiple site organization consisting of ambulatory clinics and hospital sitesin [place], [place], [place] and [place]. This disclosure is being madepursuant to the Care Everywhere program and may not contain all information available regarding this patient. Last updated 18.[facility] Allergies Active Allergy Reactions Criticality Noted Date Comments Prednisone Rash Medium 01/30/2018 Medications * Be aware that medications may not be up to date on this document. Alwaysverify current medications with the patient. propranolol CR 24hr (INDERAL LA) 60 MG capsule 04/04/2016 Active glycopyrrolate (ROBINUL) 1 MG tablet 180 tablet 12 05/03/2016 Active lidocaine vis 2% SOLN-diphenhyd 12.5mg/5ML ELXR-alum&mag hydroxide 225-200mg/5ML SUSP 1:1:1 Swish and spit 10 mL 4 times daily 180 mL 0 01/30/2018 Active SERTRALINE HCL PO Take by mouth. 01/30/2018 Active PROPRANOLOL HCL PO Take by mouth. 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 Gender Identity Not on file Sexual Orientation Not on file Last Filed Vital Signs Vital Sign Reading Time Taken Comments Blood Pressure 139/84 01/30/2018 10:13 AM CDT Pulse 63 01/30/2018 10:13 AM CDT Temperature 36.6 C (97.8 F) 01/30/2018 10:13 AM CDT Respiratory Rate 16 01/30/2018 10:13 AM CDT Oxygen Saturation 99% 01/30/2018 10:13 AM CDT Inhaled Oxygen Concentration - - Weight - - Height - - Body Mass Index - - Plan of Treatment Health Maintenance Due Date Last Done Comments COLOGUARD (AGES 45-75) - COL ON CA SCREENING 1979 COLON MONITORING 1979 COLONOSCOPY - COLON CA SCREENING 1979 CT COLONOGRAPHY - COLON CA SCREENING 1979 Colorectal Cancer Screening 1979 FIT - COLON CA SCREENING 1979 FLEX SIG - COLON CA SCREENING 1979 LIPID TESTING 1979 HIV SCREENING 1994 HEPATITIS C SCREENING 06/17/1997 DTAP/TDAP/TD VACCINES (1 - Tdap) 1998 HEPATITIS B VACCINE (1 of 3 - 19+ 3-dose series) 1998 HPV VACCINE (1 - 3-dose SCDM series) 2006 DEPRESSION SCREENING 07/24/2024 COVID-19 VACCINE (1 - 2023-2 5 season) 2025 INFLUENZA VACCINE (#1) 2025 ZOSTER VACCINE (1 of 2) 2029 HIB VACCINE Aged Out No longer eligi ble based on patient's age to complete this topic MENINGOCOCCAL (Group B) VACC INE SHARED DECISION-MAKING Aged Out No longer eligibl e based on patient's age to complete this topic MENINGOCOCCAL GROUPS A/C/Y/W VACCINE Aged Out No longer eligible b ased on patient's age to complete this topic PNEUMOCOCCAL VACCINE Aged Out No long er eligible based on patient's age to complete this topic Insurance ANTHEM ANTHEM Care Teams Inspector Receiving Relationship Specialty Start Date End Date Aj Hinton MD [address] [place] [phone] PCP - General 05/07/19 Aj Hinton MD [address] [place] [address] 01/30/18
--- OUTSIDE RECORDS SUMMARY | 2025-03-31 09:33 | XMS_ITS | Clinical Summary ---
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 Gender Identity Not on file Sexual Orientation Not on file Plan of Treatment Health Maintenance Due Date Last Done Comments Hepatitis C Virus (HCV) Screening 1979 TdaP Immunization 1979 Hepatitis B Immunization (1 of 3 - 19+ 3-dose series) 1998 Human Papillomavirus (HPV) Immunization (1 - 3-dose SCDM series) 2006 SARS-COV-2 Immunization ( season) 2024 07/07/2021 Cologuard 2024 Colonoscopy 2024 Colorectal Cancer Screening 2024 Immunochemical Fecal Occult Blood 2024 Influenza Immunization (#1) 03/24/202504/24, 05/20/2019, 05/02/2018, Additional history exists Respiratory Syncytial Virus (RSV) Immunization (Adult) (1 - 1-dose 75+ series) 2054 DTaP/Tdap/Td Immunization Discontinued 07/07/2021, 07/2005 Meningococcal Immunization (ACWY) Aged Out No longer eligible based on patient's age to complete this topic Pneumococcal Immunization Combined Aged Out No longer eligible based on patient's age to complete this topic Rotavirus Immunization Aged Out No lo nger eligible based on patient's age to complete this topic
[2025-03-31 12:52] LABS: Hematocrit 46.6 % (42.0-52.0); Hemoglobin 15.7 g/dL (14.0-18.0); Immature Granulocyte Percent A 0.2 % (0-0.5); Lymphocytes Absolute Auto 1.16 K/mm3 (0.9-3.2); Mean Corpuscular HGB Conc 33.7 g/dl (32-36); Mean Corpuscular Hemoglobin 31.2 pg (26-34); Mean Corpuscular Volume 92.5 fl (80-100); Nucleated Red Blood Cells Absolute Auto 0.000 K/mm3 (0.0-0.012); Nucleated Red Blood Cells Perc 0.0 % (0.0-0.2); Platelet Count Result 205 k/mm3 (150-375); Red Blood Count 5.04 M/mm3 (4.6-6.20); White Blood Count 4.1 K/mm3 (4.5-10.0)
[2025-03-31 13:04] LABS: Hemoglobin A1C 5.3 % (<5.7)
[2025-03-31 13:28] LABS: Alanine Aminotransferase 22 U/L (6-50); Albumin Level 4.7 g/dL (3.5-5.1); Alkaline Phosphatase 60 U/L (38-126); Anion Gap 9 mmol/L (4-12); Aspartate Amino Transferase 41 U/L (17-59); Bilirubin,Total 1.1 mg/dL (0.2-1.3); Blood Urea Nitrogen 19 mg/dL (9-20); Calcium 9.7 mg/dL (8.4-10.2); Carbon Dioxide 29 mmol/L (22-30); Chloride 101 mmol/L (98-107); Cholesterol 177 mg/dL (0-200); Estimated Glomerular Filt Rate > 60; Glucose 86 mg/dL (65-110); HDL Direct 53 mg/dL; Potassium 4.3 mmol/L (3.4-5.0); Sodium 139 mmol/L (137-145); Total Protein 7.5 g/dL (6.3-8.2); Triglycerides 72 mg/dL (<150)
[2025-03-31 13:33] LABS: Thyroid Stimulating Hormone Reflex 2.090 uIU/mL (0.465-4.68)
[2025-03-31 14:03] LABS: Prostate Specific Antigen 1.4 ng/mL (< OR = 4.0)
[2025-03-31 14:22] LABS: Vitamin B12 474.0 pg/mL (239-931)
== END 2025-03-31 09:18 | disposition home or self-care (01) ==
LOC: ANHGOSHLAB 09:18
PROVIDERS: PCP Family Medicine; Visit Provider Family Medicine
DX: E78.5 Hyperlipidemia, unspecified (principal); I10 Essential (primary) hypertension; Z12.5 Encounter for screening for malignant neoplasm of prostate; Z00.00 Encounter for general adult medical examination without abnormal findings; G25.0 Essential tremor; E55.9 Vitamin D deficiency, unspecified; R73.9 Hyperglycemia, unspecified; E53.8 Deficiency of other specified B group vitamins
CPT/HCPCS: 36415; 80053; 80061; 82306; 82607; 83036; 84153; 84443; 85025; G0103